=== PATIENT | female | born 1990 | race Caucasian/White ===

== ENCOUNTER 2020-08-08 09:04 | Outpatient (REF) | payer OTHER, SELFPAY | END 2020-08-08 09:05 | disposition home or self-care (01) | LOC: HO.LAB 09:04 | PROVIDERS: Visit Provider Internal Medicine | DX: Z20.828 Contact with and (suspected) exposure to other viral communicable diseases (principal) | CPT/HCPCS: C9803; U0003 ==

== ENCOUNTER 2020-08-13 12:45 | Outpatient (REF) | payer OTHER, SELFPAY | END 2020-08-13 12:46 | disposition home or self-care (01) | LOC: HO.LAB 12:45 | PROVIDERS: Visit Provider Internal Medicine | DX: Z20.828 Contact with and (suspected) exposure to other viral communicable diseases (principal) | CPT/HCPCS: C9803; U0003 ==